=== PATIENT | male | born 1965 | race Caucasian/White ===

== ENCOUNTER 2019-11-25 12:23 | Emergency (ER) | payer BC, SELFPAY ==
[2019-11-25 12:35] VITALS: BP 156/108; PULSE 88; RESP 18; TEMP 36.6; O2SAT 97; BMI 37.1
--- NOTE | 2019-11-25 12:52 | CT_ITS ---
WS: [id number] CT ABDOMEN AND PELVIS NONCONTRAST HISTORY: LEFT lower abdomen pain. Nausea and vomiting. TECHNIQUE: Imaging performed through the abdomen and pelvis. Coronal and sagittal reformats are submi tted. All CT scans at [facility] use at least one of these dose optimization techniques: automated exposure control; mA and/or kV adjustment per patient size (includes targeted exams where d ose is matched to clinical indication); or iterative reconstruction. DLP: 1465.11 mGy.cm COMPARISON: 11/21/2019. Lower thorax: Lung bases are clear. No hiatal hernia. Liver: Diffuse hepatic steatosis and mild cardiomegaly. No bile duct dilatation or mass. Gallbladder: Unremarkable. Pancreas: Normal. Spleen: Normal size spleen with granulomata. Adrenal glands: Normal. Right kidney: Mild perinephric stranding with no mass or calcification. Normal ureter. Left kidney: Mild perinephric stranding and edema. There is mild dilatation of the LEFT renal pelvis and LEFT ureter. Obstruction is due to a 5 mm calcification at the UV junction. This calcification wa s described on 11/21/2019 and migrated inferiorly by approximately 3 cm. Abdominal aorta and IVC are unremarkable. No free fluid, intraperitoneal air or significant lymphadenopathy. GI tract: The appendix is normal size with no evidence for acute appendicitis. There is an appendicol ith present. No GI tract obstruction. Abdominal wall: Small umbilical hernia. There is a loop of small bowel extending into the umbilical h ernia with no obstruction. Pelvis: Normally distended urinary bladder. No wall thickening. Prostate gland is normal size with a central calcification. No adenopathy or free fluid. Osseous structures: Unremarkable. CT/CT kidney stone 97715 IMPRESSION: 1. LEFT UV junction 5 mm calcification causing a mild hydroureteronephrosis. 2. Distal LEFT ureteral calcification has moved distally by 3 cm since 11/21/19 20. 3. Appendicolith with no evidence for acute appendicitis. 4. Hepatic steatosis.
--- NOTE | 2019-11-25 12:52 | W.ED.GENADLT ---
HPI - General Adult General: Chief complaint: General Medical Stated complaint: PCP sent for kidney stone Time Seen by Provider: 11/25/19 12:45 Source: patient Mode of arrival: ambulatory Limitations: no limitations History of Present Illness: HPI narrative: 54-year-old male states that he has a kidney stone on the left kidney and has had pain since Friday. He states his primary care doctor sent him here because he believes he is not passed the stone. He is continued of pain he rates a 6 out of 10. Denies any worsening improving factors. Onset (ago): day(s) Location: left Severity: mild Quality: sharp Pain Consistency: constant Relieving factors: none Exacerbating factors: none Associated symptoms: Reports nausea; Deny chest pain, dyspnea, headache(s) or rash Review of Systems Const: Denies: fever, chills, body aches or change in appetite Eyes: Denies: blurry vision or eye discomfort ENMT: Denies: throat pain or dental pain Card: Denies: chest pain Resp: Denies: shortness of breath GI: Reports: nausea : Reports: flank pain Musc: Denies: neck pain or back pain Skin/Breast: Denies: rash Neuro: Denies: headache Psych: Denies: depression Jose/Lymph: Denies: easy bruising All/Imm: Denies: hives PFSH ED PFSH: Social History Smoking and tobacco status: never smoked Physical Exam Const: COMMON NORMALS: no apparent distress, oriented x3 and healthy appearing HENMT: COMMON NORMALS: normocephalic and head/scalp atraumatic HEAD & SCALP: normocephalic and atraumatic Eye: COMMON NORMALS: PERRL and EOMs intact bilaterally PUPIL: Yes PERRL Neck/C-Spine: COMMON NORMALS: full ROM and supple Chest: COMMONS NORMALS: inspection of chest normal and palpation of chest normal Resp: COMMON NORMALS: normal respiratory effort, no retractions, no use of accessory muscles and clear to auscultation bilaterally AUSCULTATION: clear to auscultation bilaterally Cardio: COMMON NORMALS: regular rate, regular rhythm and no murmurs RATE: regular rate RHYTHM: regular rhythm GI: COMMON NORMALS: normal to inspection, nondistended, normoactive bowel sounds, soft to palpation, non-tender and no masses PALPATION: Yes soft Extremity: COMMON NORMALS: normal to inspection and full ROM Neuro: COMMON NORMALS: oriented x3, moves all extremities and no focal motor deficits Psych: COMMON NORMALS: mental status grossly normal, thought process normal and cooperative THOUGHT PROCESS: normal thought process Skin: COMMON NORMALS: no rashes or lesions noted and no wounds GENERAL SKIN EXAM: no rashes or lesions noted Course Vital Signs: Vital signs: Vital Signs Temperature 98 F 11/25/19 12:35 Pulse Rate 72 11/25/19 14:21 Respiratory Rate 16 11/25/19 14:21 Blood Pressure 155/98 11/25/19 14:21 Pulse Oximetry 98 11/25/19 14:21 MDM - General Adult MDM Narrative: Medical decision making narrative: Patient presents here with kidney stone causing flank pain. His stone has moved slightly since previous exam. Patient stone is 5 mm and still has a chance to pass. We will place him on pain meds and he is to follow-up with Dr. Colbert in 2 to 3 days. He is return if worsening. He has no signs of infection. Lab Data: Labs: Lab Results 11/25/19 11/25/19 11/25/19 Range/Units 13:15 13:15 14:17 WBC 10.1 H (4.0-10.0) 10^3/ uL RBC 5.25 (4.1-5.3) 10^6/u L Hgb 15.9 (11.7-16.6) g/dL Hct 45.1 (42.0-52.0) % MCV 85.9 (80-94) fL MCH 30.3 (28.0-34.0) pg MCHC 35.3 (30.0-36.0) g/dL RDW 12.6 (12.1-15.1) % Plt Count 223 (130-400) 10^3/c mm MPV 8.5 (7.4-10.4) fL Neut % (Auto) 46.8 % Lymph % (Auto) 40.7 % Keith % (Auto) 8.5 % Eos % (Auto) 2.4 % Baso % (Auto) 0.5 % Neut # (Auto) 4.7 (1.8-7.7) 10^3/u L Lymph # (Auto) 4.1 (0.8-4.8) 10^3/u L Keith # (Auto) 0.9 (0.2-0.9) 10^3/u L Eos # (Auto) 0.2 (0.0-0.8) 10^3/u L Baso # (Auto) 0.1 (0.0-0.1) 10^3/u L Nucleated RBC % (a uto) 0 % Nucleated RBCs # 0.0 /100WBC Sodium 136 (136-145) mmol/L Potassium 4.0 (3.5-5.1) mmol/L Chloride 99 (98-107) mmol/L Carbon Dioxide 25 (22-29) mmol/L Anion Gap 16.0 (5-19) BUN 13 (6-20) mg/dL Creatinine 1.6 H (0.7-1.2) mg/dL GFR Calculation 45.3 L (90-130) mL/min Glucose 180 H (65-115) mg/dL Calculated Osmolal ity 283 L (285-295) mOsm/k g Calcium 9.7 (8.5-10.5) mg/dL Total Bilirubin 0.7 (0.15-1.2) mg/dL AST 62 H (0-40) U/L ALT 109 H (0-41) U/L Alkaline Phosphata se 112 (40-130) IU/L Total Protein 7.2 (6.6-8.7) g/dL Albumin 4.1 (3.5-5.2) g/dL Globulin 3.1 (1.3-4.6) g/dL Urine Color Straw (Yellow) Urine Appearance Clear (CLEAR) Urine pH 6.5 (5-7) Ur Specific Gravit y 1.010 (1.005-1.030) Urine Protein Neg (Negative) Urine Glucose (UA) 2+ (Normal) Urine Ketones Negative (Negative) Urine Blood Neg (Negative) Urine Nitrate Negative (Negative) Urine Bilirubin Neg (NEGATIVE) Urine Urobilinogen Norm (Negative) mg/dL Ur Leukocyte Pily ase Negative (Negative) Imaging Data^: CT Abd/Pel: Radiologist's impression: [address] [place] [address] CT Scan Report Signed Patient: Lars Mark Unit #: [id number] : [id number] Age/Sex: 54 / M ADM Date: 11/25/19 Loc: ER Room/Bed: Attending Dr: Ordering Provider/Ordering MD: Jim Morillo MD Date of Service: 11/25/19 Procedure(s): CT kidney stone 99599 Accession Number(s): [id number] Report Number: [id number] WS: [id number] CT ABDOMEN AND PELVIS NONCONTRAST HISTORY: LEFT lower abdomen pain. Nausea and vomiting. TECHNIQUE: Imaging performed through the abdomen and pelvis. Coronal and sagittal reformats are submitted. All CT scans at [facility] use at least one of these dose optimization techniques: automated exposure control; mA and/or kV adjustment per patient size (includes targeted exams where dose is matched to clinical indication); or iterative reconstruction. DLP: 1465.11 mGy.cm COMPARISON: 11/21/2019. Lower thorax: Lung bases are clear. No hiatal hernia. Liver: Diffuse hepatic steatosis and mild cardiomegaly. No bile duct dilatation or mass. Gallbladder: Unremarkable. Pancreas: Normal. Spleen: Normal size spleen with granulomata. Adrenal glands: Normal. Right kidney: Mild perinephric stranding with no mass or calcification. Normal ureter. Left kidney: Mild perinephric stranding and edema. There is mild dilatation of the LEFT renal pelvis and LEFT ureter. Obstruction is due to a 5 mm calcification at the UV junction. This calcification was described on 11/21/2019 and migrated inferiorly by approximately 3 cm. Abdominal aorta and IVC are unremarkable. No free fluid, intraperitoneal air or significant lymphadenopathy. GI tract: The appendix is normal size with no evidence for acute appendicitis. There is an appendicolith present. No GI tract obstruction. Abdominal wall: Small umbilical hernia. There is a loop of small bowel extending into the umbilical hernia with no obstruction. Pelvis: Normally distended urinary bladder. No wall thickening. Prostate gland is normal size with a central calcification. No adenopathy or free fluid. Osseous structures: Unremarkable. CT/CT kidney stone [id number] IMPRESSION: 1. LEFT UV junction 5 mm calcification causing a mild hydroureteronephrosis. 2. Distal LEFT ureteral calcification has moved distally by 3 cm since 11/21/2019. 3. Appendicolith with no evidence for acute appendicitis. 4. Hepatic steatosis. Discharge Plan Discharge Patient Disposition: Home, Self-Care Condition: Stable Prescriptions: [place] 5-325 mg tablet 1 tab PO Q6H PRN (Reason: pain) Qty: 14 RF: 0 Zofran 4 mg tablet 4 mg PO QID PRN (Reason: nausea and vomiting) Qty: 14 RF: 0 No Action Symbicort 80-4.5 mcg/actuation Hfa Aerosol Inhaler 2 puff INHALATION BID RF: 0 Multiple Vitamins Tablet 1 tab PO DAILY RF: 0 ciprofloxacin HCl 500 mg tablet 500 mg PO BID RF: 0 tamsulosin 0.4 mg capsule 0.4 mg PO DAILY RF: 0 ibuprofen 200 mg Tablet 400 mg PO PRN RF: 0 polyethylene glycol 3350 17 gram/dose powder 17 g PO PRN RF: 0 Discharge Orders: Discharge Order (Routine); Ordered 11/25/19 Ordered By: Jim Morillo Referrals: Moe Farnsworth [Primary Care Provider] - Alex Colbert MD [Physician] - 1-3 days Rivas Medina FNP [Family Provider] - Discharge Diet: Advance as tolerated Discharge Activity: Resume usual activity Coding Level of Care Code ED Criminal Records Technician for Chg Fwd Exam Comprehensive
[2019-11-25] MEDS: ketorolac 30 mg/mL INJ IVP (13:14)
[2019-11-25] MEDS: ondansetron 2 mg/ML SDV 2 mL 4 MG IVP (13:14)
[2019-11-25] MEDS: sodium chloride 0.9% 1,000 ML 999 ML IV (13:14)
[2019-11-25 13:24] LABS: Basophils # 0.1 10^3/uL (0.0-0.1); Basophils % 0.5 %; Eosinophils # 0.2 10^3/uL (0.0-0.8); Eosinophils % 2.4 %; Hematocrit 45.1 % (42.0-52.0); Hemoglobin 15.9 g/dL (11.7-16.6); Lymphocytes # 4.1 10^3/uL (0.8-4.8); Lymphocytes % 40.7 %; Mean Corpuscular HGB Conc 35.3 g/dL (30.0-36.0); Mean Corpuscular Hemoglobin 30.3 pg (28.0-34.0); Mean Corpuscular Volume 85.9 fL (80-94); Mean Platelet Volume 8.5 fL (7.4-10.4); Monocytes # 0.9 10^3/uL (0.2-0.9); Monocytes % 8.5 %; Neutrophils # 4.7 10^3/uL (1.8-7.7); Neutrophils % 46.8 %; Nucleated Red Blood Cells % 0 %; Platelet Count 223 10^3/cmm (130-400); Red Blood Count 5.25 10^6/uL (4.1-5.3); Red Cell Distribution Width 12.6 % (12.1-15.1); White Blood Count 10.1 10^3/uL (4.0-10.0)
[2019-11-25 13:47] LABS: Alanine Aminotransferase 109 U/L (0-41); Albumin Level 4.1 g/dL (3.5-5.2); Alkaline Phosphatase 112 IU/L (40-130); Aspartate Amino Transferase 62 U/L (0-40); Blood Urea Nitrogen 13 mg/dL (6-20); Calcium 9.7 mg/dL (8.5-10.5); Carbon Dioxide 25 mmol/L (22-29); Chloride 99 mmol/L (98-107); Globulin 3.1 g/dL (1.3-4.6); Glomerular Filtration Rate 45.3 mL/min (90-130); Glucose 180 mg/dL (65-115); Osmolality Calculated 283 mOsm/kg (285-295); Sodium 136 mmol/L (136-145); Total Bilirubin 0.7 mg/dL (0.15-1.2); Total Protein 7.2 g/dL (6.6-8.7)
[2019-11-25 14:21] VITALS: BP 155/98; PULSE 72; RESP 16; O2SAT 98
[2019-11-25 14:35] LABS: Add Urine Microscopic? NO
[2019-11-25 14:50] LABS: Bilirubin Urine Neg (NEGATIVE); Blood Urine Neg (Negative); Glucose Urine UA 2+ (Normal); Ketones Urine Negative (Negative); Nitrate Urine Negative (Negative); Protein Urine Neg (Negative); Urine Appearance Clear (CLEAR); Urine Color Straw (Yellow); pH Urine 6.5 (5-7)
[2019-11-25 14:51] LABS: Leukocyte Esterase Urine Negative (Negative); Urobilinogen Urine Norm (Negative)
--- NOTE | 2019-11-25 15:00 | DCPLANNER ---
financial sales manager was asked to schedule a follow up appointment for patient with Dr. Colbert. financial sales manager called the office of Dr. Colbert, spoke with Dilcia. financial sales manager gave clinic patients information, was told that patients information would be printed and given to Candace for review. Clinic will call patient with appointment information. financial sales manager will call for appointment information.
[2019-11-25 15:08] VITALS: BP 151/94; PULSE 78; RESP 16; O2SAT 100
--- NOTE | 2019-11-26 12:30 | DCPLANNER ---
Patient has a follow up appointment scheduled for 11.26.[address] Colbert, patient attended appointment.
== END 2019-11-25 15:09 | disposition home or self-care (01) ==
PROVIDERS: Emergency Provider Emergency Medicine; Family Provider Nurse Practitioner Family; PCP Physician Assistant Medical
DX: N20.1 Calculus of ureter (principal)
CPT/HCPCS: 12345; 74176; 80053; 81003; 85025; 96361; 96374; 96375; 99282; 99283; J1885; J2405; J7030

== ENCOUNTER 2019-11-26 09:54 | Outpatient (CLI) | payer BC, SELFPAY ==
--- NOTE | 2019-11-26 09:45 | XR_ITS ---
WS: [id number] ABDOMEN 1 VIEW(S) HISTORY: URETERAL CALCULUS COMPARISON: 11/25/2019 Normal bowel gas pattern. No change in position of the 4 mm distal LEFT ureteral calcification as described on 11/25/2019. No ad ditional renal or ureteral calcifications. No bone abnormality. XR/XR KUB [id number] IMPRESSION: Unchanged position of the LEFT 4 mm UV junction calcification.
== END 2019-11-26 09:55 | disposition home or self-care (01) ==
LOC: RAD 09:57
PROVIDERS: Family Provider Nurse Practitioner Family; PCP Physician Assistant Medical; Visit Provider Urology
DX: N20.1 Calculus of ureter (principal)
CPT/HCPCS: 74018; 81001

== ENCOUNTER 2019-12-03 07:05 | Outpatient (CLI) | payer BC, SELFPAY ==
--- NOTE | 2019-12-03 07:15 | XR_ITS ---
WS: [id number] XR KUB [id number] REASON FOR EXAM: ureteral calculus FINDINGS: Comparisons were made to November 26, 2019. Both renal shadows appear to be essentially normal. Calcified density is seen in the right pelvis but this does not appear to be in the kidneys ureter bladder. Ureter. There is no definite follow-up changes consistent with obstruction. XR/XR KUB [id number] IMPRESSION: Nonspecific abdominal findings.
== END 2019-12-03 07:06 | disposition home or self-care (01) ==
LOC: RAD 07:07
PROVIDERS: PCP Physician Assistant Medical; Visit Provider Urology
DX: N20.1 Calculus of ureter (principal)
CPT/HCPCS: 74018; 81001

== ENCOUNTER → 2023-09-12 12:22 | Outpatient (BNVA) | payer BC, SELFPAY | PROVIDERS: PCP Registered Nurse; Visit Provider Podiatrist Foot & Ankle Surgery | DX: L97.523 Non-pressure chronic ulcer of other part of left foot with necrosis of muscle (principal) | CPT/HCPCS: 87070; 87075; 87077; 87186; 87205 ==

== ENCOUNTER → 2025-06-29 15:39 | Outpatient (BNVA) | payer SELFPAY | PROVIDERS: PCP Registered Nurse; Visit Provider Podiatrist Foot & Ankle Surgery | DX: G60.9 Hereditary and idiopathic neuropathy, unspecified (principal); L97.522 Non-pressure chronic ulcer of other part of left foot with fat layer exposed | CPT/HCPCS: 87070; 87075; 87077; 87186; 87205 ==

== ENCOUNTER → 2025-07-06 08:02 | Outpatient (BNVA) | payer SELFPAY | PROVIDERS: PCP Registered Nurse; Visit Provider Podiatrist Foot & Ankle Surgery | DX: L97.513 Non-pressure chronic ulcer of other part of right foot with necrosis of muscle (principal); G60.9 Hereditary and idiopathic neuropathy, unspecified; L03.116 Cellulitis of left lower limb | CPT/HCPCS: 73630 ==